=== PATIENT | female | born 1980 | race Caucasian/White ===

== ENCOUNTER 2017-06-15 12:20 | Emergency (ER) | payer OTHER, BC | END 2017-06-15 16:20 | disposition home or self-care (01) | LOC: FTE 12:20 | DX: M54.5 Low back pain (principal); G43.109 Migraine with aura, not intractable, without status migrainosus; I10 Essential (primary) hypertension; E66.01 Morbid (severe) obesity due to excess calories; Z68.43 Body mass index [BMI] 50.0-59.9, adult | CPT/HCPCS: 99283; Z7502 ==